=== PATIENT | male | born 1965 | race Caucasian/White ===

== ENCOUNTER 2017-10-28 19:47 | Emergency (ER) | payer OTHER ==
[~2017-10-28] VITALS: Ht 193 cm; Wt 104.8 kg
[2017-10-28] MEDS ORDERED: MONDOXYNE NL100 MG PO (21:33)
[2017-10-28] MEDS ORDERED: LISI5 PO (21:33)
[2017-10-28] MEDS ORDERED: MONT10T PO (21:33)
[2017-10-28] MEDS ORDERED: BUDE6HFA INH (21:34)
[2017-10-28] MEDS ORDERED: ELIQUIS5 MG PO (21:34)
[2017-10-28] MEDS ORDERED: ATOR10 PO (21:35)
[2017-10-28] MEDS ORDERED: RANI150 PO (21:35)
[2017-10-28] MEDS ORDERED: Bactrim Ds Tab1 EACH PO (22:54)
== END 2017-10-29 00:49 | disposition home or self-care (01) ==
LOC: ER 19:47
DX: L03.213 Periorbital cellulitis (principal); Z79.899 Other long term (current) drug therapy
CPT/HCPCS: 36415; 96365; 96374; 99283; J3370; J7050

== ENCOUNTER 2021-11-05 09:58 | Emergency (ER) | payer OTHER ==
[~2021-11-05] VITALS: Ht 193 cm; Wt 142.0 kg
[~2021-11-05 09:58] MED LIST: ATOR10 PO; BUDE6HFA INH; Bactrim Ds Tab1 EACH PO; ELIQUIS5 MG PO; LISI5 PO; MONDOXYNE NL100 MG PO; MONT10T PO; RANI150 PO
[2021-11-05 10:21] LABS: BASOPHILS ABSOLUTE AUTO 0.03 K/mm3 (0.00-0.23); BASOPHILS PERCENT AUTO 1 % (0-2); EOSINOPHILS ABSOLUTE AUTO 0.35 K/mm3 (0.00-0.68); EOSINOPHILS PERCENT AUTO 6 % (0-6); Hematocrit 50.1 % (37.0-53.0); Hemoglobin 17.3 g/dL (13.5-17.5); IMMATURE GRAN ABSOLUTE AUTO 0.01 K/mm3 (0.00-0.10); IMMATURE GRAN PERCENT AUTO 0 % (0-1); LYMPHOCYTES ABSOLUTE AUTO 2.06 K/mm3 (0.84-5.20); LYMPHOCYTES PERCENT AUTO 32 % (21-46); MONOCYTES ABSOLUTE AUTO 0.69 K/mm3 (0.16-1.47); MONOCYTES PERCENT AUTO 11 % (4-13); Mean Corpuscular HGB 29.7 pg (26.0-34.0); Mean Corpuscular HGB Conc 34.5 g/dL (31.5-36.5); Mean Corpuscular Volume 86 fL (80-100); Mean Platelet Volume 9.2 fL (9.1-12.4); NEUTROPHILS ABSOLUTE AUTO 3.27 K/mm3 (1.96-9.15); NEUTROPHILS PERCENT AUTO 51 % (41-73); Platelet Count 251 K/mm3 (150-400); RDW Coefficient Variation 12.7 % (11.7-14.2); RDW Standard Deviation 39.7 fL (35.1-46.3); Red Blood Cell Count 5.83 M/mm3 (4.30-5.90); White Blood Cell Count 6.41 K/mm3 (4.00-11.30)
[2021-11-05 10:50] LABS: Alanine Aminotransfer (ALT/SGP 47 U/L (12-78); Alk Phos 98 U/L (50-136); Anion Gap 9 mmol/L (6-16); Aspartate Aminotrans (AST/SGOT 35 U/L (12-37); Bilirubin, Total 1.4 mg/dL (0.1-1.0); Blood Urea Nitrogen 10 mg/dL (8-24); Bun/Creatinine Ratio 11.4 (12.0-20.0); CO2, Blood 25 mmol/L (21-32); Chloride, Blood 106 mmol/L (98-108); Creatinine, Blood 0.88 mg/dL (0.60-1.20); Glomerular Filtration Rate >60 (60-); Glucose, Blood 97 mg/dL (70-99); Potassium, Blood 4.3 mmol/L (3.5-5.5); Sodium, Blood 140 mmol/L (136-145); Troponin I 0.068 ng/mL (0.000-0.040)
== END 2021-11-05 14:54 | disposition home or self-care (01) ==
LOC: ER 09:58
PROVIDERS: Emergency Medicine
DX: I48.0 Paroxysmal atrial fibrillation (principal); Z79.899 Other long term (current) drug therapy
CPT/HCPCS: 71046; 80053; 83880; 84484; 85025; 92960; 93005; 93010; 99285-25; J2704; J7030